=== PATIENT | male | born 1990 | race Two or more races ===

== ENCOUNTER 2021-07-03 08:43 | Emergency (ER) | payer OTHER ==
[2021-07-03 08:51] VITALS: RESP 18
[2021-07-03] MEDS ORDERED: methylPREDNISolone SOD SUCCI 125 MG/2 ML VIAL IM ONE (09:08)
[2021-07-03] MEDS ORDERED: IPRATROPIUM-ALBUTEROL 3 ML NEB INHALATION STA (09:08)
--- NOTE | 2021-07-03 09:26 | XR ---
EXAMINATION TYPE: XR chest 2V DATE OF EXAM: 07/03/2021 COMPARISON: NONE TECHNIQUE: PA and lateral views submitted. HISTORY: Shortness of breath FINDINGS: The lungs are clear and there is no pneumothorax, pleural effusion, or focal pneumonia. Heart size normal. No overt failure. IMPRESSION: 1. No acute process.
--- NOTE | 2021-07-03 10:30 | ED ---
General Adult HPI - General Chief complaint: Shortness of Breath Stated complaint: Asthma Time Seen by Provider: 07/03/21 08:51 Source: patient, RN notes reviewed Mode of arrival: ambulatory Limitations: no limitations - History of Present Illness Initial comments: This a 31-year-old male presents emergency Department chief complaint of shortness of breath. Patient states that he has asthma recently ran out of his Advair. Patient states that he started having increasing shortness breath he is getting some relief with his inhaler, nebulizer. Patient denies fevers chills or any productive cough no sick contacts no nasal congestion. - Related Data Previous Rx's Medication Instructions Recorded Albuterol Nebulized [Ventolin 2.5 mg INHALATION Q4H PRN #75 ml 07/03/21 Nebulized] predniSONE 50 mg PO DAILY #5 tab 07/03/21 Allergies Allergy/AdvReac Type Severity Reaction Status Date / Time peanut Allergy Intermediate Itching Verified 07/03/21 09:33 Review of Systems ROS Statement: Those systems with pertinent positive or pertinent negative responses have been documented in the HPI. ROS Other: All systems not noted in ROS Statement are negative. Past Medical History Past Medical History: Asthma History of Any Multi-Drug Resistant Organisms: None Reported Past Surgical History: No Surgical Hx Reported Past Anesthesia/Blood Transfusion Reactions: No Reported Reaction Past Psychological History: Bipolar, Depression Smoking Status: Never smoker Past Alcohol Use History: Occasional, Rare Past Drug Use History: None Reported - Past Family History Father Family Medical History: Hypertension, Myocardial Infarction ([place]) Mother Family Medical History: Asthma, Hypertension General Exam Limitations: no limitations General appearance: alert, in no apparent distress Head exam: Present: atraumatic, normocephalic, normal inspection Eye exam: Present: normal appearance, PERRL, EOMI. Absent: scleral icterus, conjunctival injection, periorbital swelling ENT exam: Present: normal exam, mucous membranes moist Neck exam: Present: normal inspection. Absent: tenderness, meningismus, lymphadenopathy Respiratory exam: Present: wheezes. Absent: normal lung sounds bilaterally, respiratory distress, rales, rhonchi, stridor Cardiovascular Exam: Present: regular rate, normal rhythm, normal heart sounds. Absent: systolic murmur, diastolic murmur, rubs, gallop, clicks Course Vital Signs 07/03/21 07/03/21 07/03/21 08:47 09:59 10:14 Temperature 98.4 F Pulse Rate 109 H 97 83 Respiratory 18 Rate Blood Pressure 135/75 O2 Sat by Pulse 95 Oximetry Medical Decision Making - Medical Decision Making X-ray is unremarkable covid 19 is negative. Patient will be discharged with prednisone and albuterol treatments as he is shown improvement. - Lab Data Lab Results 07/03/21 Range/Units 09:16 Coronavirus (PCR) Not Detected (Not Detectd) Disposition Clinical Impression: Acute asthma exacerbation Disposition: HOME SELF-CARE Condition: Stable Instructions (If sedation given, give patient instructions): Asthma (ED) Additional Instructions: Please return to the Emergency Department if symptoms worsen or any other concerns. Prescriptions: predniSONE 50 mg PO DAILY #5 tab Albuterol Nebulized [Ventolin Nebulized] 2.5 mg INHALATION Q4H PRN #75 ml PRN Reason: difficulty in breathing Is patient prescribed a controlled substance at d/c from ED?: No Referrals: None,Stated [Primary Care Provider] - 1-2 days Time of Disposition: 10:29
[2021-07-03 10:39] VITALS: BP 129/64; PULSE 87; TEMP 97.8
== END 2021-07-03 10:39 | disposition home or self-care (01) ==
LOC: EC 08:43
DX: J45.901 Unspecified asthma with (acute) exacerbation (principal); Z20.822 Contact with and (suspected) exposure to COVID-19
CPT/HCPCS: 94640; 87635; 71046; 99285; 96372; J2930